=== PATIENT | male | born 1995 | race African-American/Black ===

== ENCOUNTER 2018-10-12 22:24 | Emergency (ER) | payer MEDICAID ==
[~2018-10-12] VITALS: Ht 175.3 cm; Wt 78.0 kg
[2018-10-13] MEDS ORDERED: HYDROCODONE/ACETAMINOPHEN 5/325MG TABLET PO ONE (00:15)
[2018-10-13 01:52] VITALS: BP 132/72
== END 2018-10-13 01:54 | disposition home or self-care (01) ==
LOC: ER 22:24
DX: S92.492A Other fracture of left great toe, initial encounter for closed fracture (principal); F12.10 Cannabis abuse, uncomplicated; X58.XXXA Exposure to other specified factors, initial encounter; Y93.89 Activity, other specified; Y92.89 Other specified places as the place of occurrence of the external cause; Y99.8 Other external cause status
CPT/HCPCS: 29515; 73630; 73660; 99283